=== PATIENT | female | born 1950 | race Caucasian/White ===

== ENCOUNTER 2020-10-29 16:53 | Emergency (ER) | payer MEDICARE ==
--- NOTE | 2020-10-29 16:54 | ERPHSYRPT ---
- History of Present Illness Time Seen by Provider: 10/29/20 16:54 Source: patient, family Exam Limitations: no limitations Physician History: This is a 70-year-old obese white female who slipped and fell out of a truck and hit her left shoulder on the high step. She did not lose consciousness. She did not hit her head she has no headache she has no chest pain she has no neck pain. Patient takes tramadol chronically. Occurred: just prior to arrival Reason for Fall: slipped Injuries/Pain Location: upper extremity (Right shoulder) Loss of Consciousness: no loss of consciousness Severity of Pain-Max: moderate Severity of Pain-Current: moderate Modifying Factors: Improves With: movement (Worsens) Associated Symptoms (Fall): extremity injury (Right shoulder pain) Allergies/Adverse Reactions: No Known Drug Allergies Allergy (Unverified 10/29/20 17:14) Travel Risk - International Travel Have you traveled outside of the country in past 3 weeks: No - Coronavirus Screening Are you exhibiting any of the following symptoms?: No Close contact with a COVID-19 positive Pt in past 14-21 Days: No - Review of Systems Constitutional: No Symptoms Eyes: No Symptoms Ears, Nose, & Throat: No Symptoms Respiratory: No Symptoms Cardiac: No Symptoms Abdominal/Gastrointestinal: No Symptoms Genitourinary Symptoms: No Symptoms Musculoskeletal: Fall, Injury (Right shoulder pain), Joint Pain (Right shoulder) Skin: No Symptoms Neurological: No Symptoms Psychological: No Symptoms Endocrine: No Symptoms Hematologic/Lymphatic: No Symptoms Immunological/Allergic: No Symptoms All Other Systems: Reviewed and Negative - Past Medical History Pertinent Past Medical History: Yes - Past Surgical History Past Surgical History: Yes - Nursing Vital Signs Nursing Vital Signs: Initial Vital Signs Temperature 98.0 F 10/29/20 17:15 Pulse Rate 60 10/29/20 17:15 Respiratory Rate 18 10/29/20 17:15 Blood Pressure 118/52 10/29/20 17:15 O2 Sat by Pulse Oximetry 95 10/29/20 17:15 Pain Scale Pain Intensity 10 - [place] Coma Score Best Eye Response (Marcus): (4) open spontaneously Best Verbal Response ([place]): (5) oriented Best Motor Response (Marcus): (6) obeys commands Marcus Total: 15 - Physical Exam General Appearance: no apparent distress, alert, anxiety, obese Head Injury: no evidence of injury Eye Exam: PERRL/EOMI, eyes nml inspection ENT Exam: airway nml, nml ext.inspection Neck Exam: supple, trachea midline, full range of motion, normal alignment, nor mal inspection Respiratory/Chest Exam: No chest tenderness, No respiratory distress, No accessory muscle use Cardiovascular Exam: normal heart sounds, normal peripheral pulses Gastrointestinal Exam: No tenderness Rectal Exam: not done Back Exam: normal inspection, normal range of motion, No CVA tenderness Ordered Tests: Active Orders 24 hr Category Date Time Status SHOULDER Stat Exams 10/29/20 17:30 Taken Medication Summary Discontinued Medications Generic Name Dose Route Start Last Admin Trade Name Freq PRN Reason Stop Dose Admin Hydromorphone HCl 1 mg 10/29/20 17:50 10/29/20 17:54 Hydromorphone 1 Mg/Ml Injection IM 10/29/20 17:51 1 mg STAT ONE Administration Hydromorphone HCl Confirm 10/29/20 17:53 Hydromorphone 1 Mg/Ml Injection Administered 10/29/20 17:54 Dose 1 mg .ROUTE .STK-MED ONE Ondansetron HCl 4 mg 10/29/20 17:51 10/29/20 17:54 Zofran Odt 4 Mg PO 10/29/20 17:52 4 mg STAT ONE Administration Ondansetron HCl Confirm 10/29/20 17:53 Zofran Odt 4 Mg Administered 10/29/20 17:54 Dose 4 mg .ROUTE .STK-MED ONE - Departure Departure Disposition: Home Clinical Impression: Contusion of right shoulder, Fall with injury Condition: Stable Critical Care Time: No Referrals: JUSTIN VARGAS [Primary Care Provider] - Prescriptions: Carisoprodol 350 mg [Soma 350 mg] 350 mg PO Q12H PRN PRN #6 tablet PRN Reason: Muscle Spasms Cyclobenzaprine HCl 10 mg [Cyclobenzaprine 10 MG] 10 mg PO TID #10 tablet
[2020-10-29 17:22] VITALS: O2SAT 95
[2020-10-29] MEDS ORDERED: Hydromorphone 1 mg/ml Injection IM ONE (17:50)
[2020-10-29] MEDS ORDERED: ZOFRAN ODT 4 MG PO ONE (17:51)
[2020-10-29] MEDS ORDERED: ZOFRAN ODT 4 MG ONE (17:53)
[2020-10-29] MEDS ORDERED: Hydromorphone 1 mg/ml Injection ONE (17:53)
[2020-10-29 18:45] VITALS: BP 119/92; PULSE 63
--- NOTE | 2020-10-30 08:49 | XRAY ---
Indication: Pain following fall. Comparison: None 3 view right shoulder demonstrates high riding humeral head commonly seen with rotator cuff tears. Elsewhere osteopenia, moderate degenerative changes of the glenohumeral/acromioclavicular joints, and mild multilevel degenerative spondylosis. No other bony, articular, or soft tissue abnormalities.
== END 2020-10-29 18:56 | disposition home or self-care (01) ==
LOC: ED 16:53
DX: S40.011A Contusion of right shoulder, initial encounter (principal); W01.198A Fall on same level from slipping, tripping and stumbling with subsequent striking against other object, initial encounter; Y93.89 Activity, other specified; Y92.89 Other specified places as the place of occurrence of the external cause
CPT/HCPCS: 73030; 96372; 99284; J1170; Q0162